=== PATIENT | male | born 1965 ===

== ENCOUNTER 2017-12-10 14:18 | Inpatient (IN) | payer OTHER ==
[~2017-12-10] VITALS: Ht 165.1 cm; Wt 96.6 kg
--- NOTE | 2017-12-10 16:45 | NUR ---
144/83, 78 PULSE, 22 RESPIRATIONS, 99% O2 SATURATION ON ROOM AIR, 98.8 TEMPERATURE ORAL, PATIENT ARRIVED TO UNIT VIA AMBULANCE SERVICE AND ROBER, COMPLAINTS OF PAIN , REPORT FROM [facility] STATES PATIENT RECEIVED PAIN MEDICATION ([id number] AT 1530), NO SIGNS OF DISTRESS NOTED, CALL LIGHT PLACED IN REACH, BED LOCKED AND IN LOWEST POSITION. MD LANDIS AND MD SANZ NOTIFIED OF PATIENTS ARRIVAL. INVENTORY OF PATIENT BELONGINGS COMPLETED AND PLACED IN CHART. KNEE IMMOBILIZER AT BEDSIDE
[2017-12-10] MEDS ORDERED: ASPI-612 PO (17:42)
[2017-12-10] MEDS ORDERED: PANT40TA4 PO (17:43)
[2017-12-10] MEDS ORDERED: MAGNESIUM HYDROXIDE 30 ML LIQUID UDC PO PRN (17:45)
[2017-12-10] MEDS ORDERED: Z GUARD REMEDY PASTE 57 GM TUBE TOP PRN (17:45)
[2017-12-10] MEDS ORDERED: ACETAMINOPHEN 325 MG TABLET PO PRN (17:45)
[2017-12-10] MEDS ORDERED: ZOLP5TAB8 PO (17:47)
[2017-12-10] MEDS ORDERED: SENN-18 PO (17:47)
[2017-12-10] MEDS ORDERED: NALO0.4A7 IV (18:04)
[2017-12-10] MEDS ORDERED: DIPH25CA6 PO (18:04)
[2017-12-10] MEDS ORDERED: CLON0.1T PO (18:04)
[2017-12-10] MEDS ORDERED: MENT3.2L MM (18:04)
[2017-12-10] MEDS ORDERED: MULTI (18:04)
[2017-12-10] MEDS ORDERED: HYDR-3980 PO (18:04)
[2017-12-10] MEDS ORDERED: ONDA4TAB10 PO (18:04)
[2017-12-10] MEDS ORDERED: MORP15TA IM (18:04)
[2017-12-10] MEDS ORDERED: BISA10SU61 RC (18:04)
[2017-12-10] MEDS ORDERED: MAG355OR18 PO (18:04)
[2017-12-10] MEDS ORDERED: OXYCODONE HCL 5 MG TABLET PO ONE (18:30)
[2017-12-10 20:46] VITALS: BP 138/72
[2017-12-10] MEDS: DOCUSATE SODIUM 100 MG CAPSULE PO SCH (21:11)
[2017-12-10] MEDS: OXYCODONE HCL 10 MG TAB.SR.12H PO SCH (21:13)
--- NOTE | 2017-12-10 21:50 | NUR ---
2200 Oxycontin 10 mg not given because patient received Oxy 15mg @ 1900.Pain level is 3/10 at this time. He says he is comfortable right now.
--- NOTE | 2017-12-11 01:33 | NUR ---
admittedwith left total knee replacement. left knee with gianna intact, dressing intact. no drainage noted. OOB to the BR with walker with supervision. Voiding well. BM noted this shift. On pain management. On oxycontin for pain. will monitor patient. No acute distress noted.
--- NOTE | 2017-12-11 05:43 | NUR ---
quiet night. slept well.ambulates with walker to the BR. voiding well. no distress noted. will monitor patient.pain meds given as scheduled.
[2017-12-11 05:59] VITALS: BP 132/68
[2017-12-11] MEDS: OXYCODONE HCL 10 MG TAB.SR.12H PO SCH ×3 (06:20→21:03)
[2017-12-11 08:00] VITALS: BP 128/73
--- NOTE | 2017-12-11 08:22 | NUR ---
Patient noted resting in bed, easily arouses, no facial cues of pain at this time, no signs of distress, call light in reach, bed locked and in lowest position
[2017-12-11] MEDS ORDERED: HYDROCODONE/APAP 10-325 MG TABLET PO PRN (09:45)
[2017-12-11] MEDS ORDERED: ONDANSETRON HCL 4 MG TABLET PO PRN (09:45)
[2017-12-11] MEDS ORDERED: CLONIDINE HCL 0.1 MG TABLET PO PRN (09:45)
[2017-12-11] MEDS: HYDROCODONE/APAP 10-325 MG TABLET PO PRN (11:07)
[2017-12-11] MEDS: ASPIRIN 325 MG TABLET PO SCH (17:16)
--- NOTE | 2017-12-11 20:04 | NUR ---
aaox4 oob to the BR with walker with supervision. no acute distress noted. will monitor patient. Left knee dressing clean dry and intact. needs attended. vital signs taken and recorded. voiding well. denies any pain at this time. kept comfortable.
[2017-12-11 20:27] VITALS: BP 132/82
[2017-12-11] MEDS: DOCUSATE SODIUM 100 MG CAPSULE PO SCH (20:58)
[2017-12-11] MEDS: PANTOPRAZOLE SODIUM 40 MG TABLET.DR PO SCH (20:59)
[2017-12-11] MEDS: SENNOSIDES 1 TABLET PO SCH (20:59)
[2017-12-11] MEDS ORDERED: ZOLPIDEM 5 MG TABLET PO PRN (21:00)
--- NOTE | 2017-12-12 05:05 | NUR ---
slept at long intervals. no acute distress noted. kept comfortable. will monitor patient. voiding well. OOB to the BR with walker with supervision. no distress noted. fall precautions maintained.call brown within reach. siderails up for safety.
[2017-12-12 05:09] VITALS: BP 124/86
[2017-12-12] MEDS: OXYCODONE HCL 10 MG TAB.SR.12H PO SCH ×3 (06:08→21:21)
[2017-12-12 06:38] LABS: CREATININE 0.7 mg/dL (0.6-1.3); POTASSIUM 3.8 mmol/L (3.5-5.1)
[2017-12-12 06:50] LABS: BASOPHILS % (AUTO) 0.2 % (0.0-2.0); EOSINOPHILS # (AUTO) 0.1 K/uL (0.0-0.7); EOSINOPHILS % (AUTO) 0.5 % (0.0-7.0); HEMATOCRIT 32.5 % (36.7-47.1); HEMOGLOBIN 11.3 g/dL (12.5-16.3); LYMPHOCYTES # (AUTO) 2.8 K/uL (20.0-40.0); LYMPHOCYTES % (AUTO) 23.6 % (20.5-51.5); MEAN CORPUSCULAR HEMOGLOBIN 31.7 uug (23.8-33.4); MEAN CORPUSCULAR HGB CONC 35 g/dL (32.5-36.3); MEAN CORPUSCULAR VOLUME 91.5 fL (73.0-96.2); MONOCYTES # (AUTO) 1.2 K/uL (2.0-10.0); MONOCYTES % (AUTO) 9.8 % (0.0-11.0); NEUTROPHILS # (AUTO) 7.9 K/uL (1.8-8.9); NEUTROPHILS % (AUTO) 65.9 % (38.5-71.5); PLATELET COUNT (AUTO) 269 K/uL (152-348); RED BLOOD CELL COUNT(AUTO) 3.56 MIL/uL (4.06-5.63)
--- NOTE | 2017-12-12 07:36 | NUR ---
Patient noted resting in bed with eyes closed, no facial cues of pain noted, no signs of distress, call light in reach, bed locked and in lowest position, x 2 bed rails, bed alarm in place
[2017-12-12 08:00] VITALS: BP 125/79
[2017-12-12] MEDS: ASPIRIN 325 MG TABLET PO SCH ×2 (08:14→17:53)
--- NOTE | 2017-12-12 13:54 | NUR ---
INTERDISCIPLINARY TEAM CONFERENCE
--- NOTE | 2017-12-12 15:18 | NUR ---
I agree Addendum: 12/12/17 at 1519 by ANNEMARIE CUTLER OT Amended: Links added.
--- NOTE | 2017-12-12 15:18 | NUR ---
I agree Addendum: 12/12/17 at 1518 by ANNEMARIE CUTLER OT Amended: Links added.
[2017-12-12 16:00] VITALS: BP 129/76
[2017-12-12] MEDS: HYDROCODONE/APAP 10-325 MG TABLET PO PRN (17:53)
[2017-12-12 19:30] VITALS: BP 117/78
--- NOTE | 2017-12-12 20:59 | NUR ---
received pt alert, awake and oriented x3. Able to make needs known. pleasant, calm and cooperative to care. No acute distress noted. No complaints of pain or discomfort at this time. Breathing even and unlabored with normal respirations. Assisted to the bathroom as needed. Encouraged to verbalize needs and concerns and to call for assistance if needed. Call light and personal belongings within reach. All needs attended.
[2017-12-12] MEDS: PANTOPRAZOLE SODIUM 40 MG TABLET.DR PO SCH (21:20)
[2017-12-12] MEDS: SENNOSIDES 1 TABLET PO SCH (21:20)
[2017-12-12] MEDS: DOCUSATE SODIUM 100 MG CAPSULE PO SCH (21:20)
[2017-12-13] MEDS: OXYCODONE HCL 10 MG TAB.SR.12H PO SCH ×3 (06:30→21:13)
--- NOTE | 2017-12-13 08:00 | NUR ---
Patient awake, verbally responsive, coherent, not in any form of acute distress. No complain of any pain or discomfort at this time. Call light placed within reach. Reminded to use call light for assistance with verbalized understanding. Assisted to his needs. Family at bedside.
[2017-12-13 08:11] VITALS: BP 135/78
[2017-12-13] MEDS: ASPIRIN 325 MG TABLET PO SCH ×2 (08:22→17:44)
[2017-12-13 16:26] VITALS: BP 127/82
[2017-12-13] MEDS: ASPIRIN/ACETAMINOPHEN/CAFFEINE TABLET PO PRN (16:52)
[2017-12-13 19:30] VITALS: BP 134/59
--- NOTE | 2017-12-13 20:30 | NUR ---
Received pt lying comfortably in bed alert, awake and oriented x3 with no signs/symptoms of distress noted. Denies pain at this time. no SOB noted. All due meds given as ordered and well tolerated. Assisted to the bathroom as needed, PM care provided. Vital signs WNL. Encouraged to verbalize needs and concerns and to call for assistance if needed. Call light within reach. All needs attended.
[2017-12-13 20:46] VITALS: BP 125/75
[2017-12-13] MEDS: DOCUSATE SODIUM 100 MG CAPSULE PO SCH (20:52)
[2017-12-13] MEDS: SENNOSIDES 1 TABLET PO SCH (20:52)
[2017-12-13] MEDS: PANTOPRAZOLE SODIUM 40 MG TABLET.DR PO SCH (20:52)
[2017-12-14] MEDS: OXYCODONE HCL 10 MG TAB.SR.12H PO SCH ×3 (06:28→21:28)
[2017-12-14 07:38] LABS: BASOPHILS % (AUTO) 0.5 % (0.0-2.0); EOSINOPHILS # (AUTO) 0.1 K/uL (0.0-0.7); EOSINOPHILS % (AUTO) 1.3 % (0.0-7.0); HEMATOCRIT 31.1 % (36.7-47.1); LYMPHOCYTES # (AUTO) 1.8 K/uL (20.0-40.0); LYMPHOCYTES % (AUTO) 18.9 % (20.5-51.5); MEAN CORPUSCULAR HEMOGLOBIN 32.6 uug (23.8-33.4); MEAN CORPUSCULAR HGB CONC 35 g/dL (32.5-36.3); MONOCYTES # (AUTO) 0.9 K/uL (2.0-10.0); MONOCYTES % (AUTO) 9.5 % (0.0-11.0); NEUTROPHILS # (AUTO) 6.5 K/uL (1.8-8.9); NEUTROPHILS % (AUTO) 69.8 % (38.5-71.5); PLATELET COUNT (AUTO) 286 K/uL (152-348); RED BLOOD CELL COUNT(AUTO) 3.38 MIL/uL (4.06-5.63); WHITE BLOOD COUNT (AUTO) 9.3 K/uL (3.6-10.2)
[2017-12-14 08:35] VITALS: BP 120/74
--- NOTE | 2017-12-14 08:48 | NUR ---
Received patient awake, alert x4. Resting in bed. With pain over left leg, routine pain medications given. Morning care done. Not in any form of distress.
[2017-12-14] MEDS: ASPIRIN 325 MG TABLET PO SCH ×2 (08:58→17:33)
--- NOTE | 2017-12-14 09:00 | NUR ---
Up with occupational therapy, tolerating well.
[2017-12-14 16:16] VITALS: BP 136/80
[2017-12-14 19:30] VITALS: BP 134/71
[2017-12-14] MEDS: DOCUSATE SODIUM 100 MG CAPSULE PO SCH (21:22)
[2017-12-14] MEDS: PANTOPRAZOLE SODIUM 40 MG TABLET.DR PO SCH (21:23)
[2017-12-14] MEDS: SENNOSIDES 1 TABLET PO SCH (21:23)
[2017-12-15] MEDS: ASPIRIN/ACETAMINOPHEN/CAFFEINE TABLET PO PRN (01:12)
--- NOTE | 2017-12-15 04:29 | NUR ---
AAOx4 OOB with walker to the BR. Voiding without difficulty. No acute distress noted. Kept comfortable. Needs attended. On pain management. Oxycontin 10mg given @ scheduled times. Tolerated po meds well. Will monitor patient.
[2017-12-15] MEDS: OXYCODONE HCL 10 MG TAB.SR.12H PO SCH ×3 (06:15→21:07)
[2017-12-15] MEDS: ASPIRIN 325 MG TABLET PO SCH ×2 (08:27→17:01)
[2017-12-15 08:29] VITALS: BP 133/79
--- NOTE | 2017-12-15 09:48 | NUR ---
Patient noted resting in bed, states pain is at acceptable level, no signs of distress noted, call light in reach, bed locked an d in lowest position, x 2 bed rails, all needs met at this time
[2017-12-15 20:10] VITALS: BP 134/85
[2017-12-15] MEDS: SENNOSIDES 1 TABLET PO SCH (21:06)
[2017-12-15] MEDS: PANTOPRAZOLE SODIUM 40 MG TABLET.DR PO SCH (21:07)
[2017-12-15] MEDS: DOCUSATE SODIUM 100 MG CAPSULE PO SCH (21:07)
--- NOTE | 2017-12-16 01:11 | NUR ---
In good spirits. Compliant with meds. Pain meds given at scheduled times. Needs attended. Siderails up for safety. No acute distress noted. Voiding in urinal. Fall precautions maintained. Will monitor patient.
[2017-12-16 05:00] VITALS: BP 123/71
[2017-12-16] MEDS: OXYCODONE HCL 10 MG TAB.SR.12H PO SCH ×3 (06:12→21:38)
--- NOTE | 2017-12-16 07:53 | NUR ---
Patient noted resting in bed watching tv, no complaints of pain at this time, no signs of distress noted, call light in reach, bed locked and in lowest position, all needs met at this time
[2017-12-16] MEDS: ASPIRIN 325 MG TABLET PO SCH ×2 (08:37→16:26)
[2017-12-16 09:59] VITALS: BP 123/55
[2017-12-16] MEDS: ASPIRIN/ACETAMINOPHEN/CAFFEINE TABLET PO PRN (16:26)
--- NOTE | 2017-12-16 20:00 | NUR ---
RECEIVED PATIENT AWAKE IN BED. PATIENT IS A/O X4. DENIES ANY PAIN OR DISCOMFORT. NO RESP. DISTRESS NOTED. DRESSING NOTED TO LEFT KNEE, C/D/I. VS WNL. CALL LIGHT IN REACH. ALL NEEDS ATTENDED. WILL CONTINUE TO MONITOR.
[2017-12-16 20:06] VITALS: BP 130/76
[2017-12-16] MEDS: PANTOPRAZOLE SODIUM 40 MG TABLET.DR PO SCH (21:37)
[2017-12-16] MEDS: DOCUSATE SODIUM 100 MG CAPSULE PO SCH (21:37)
[2017-12-16] MEDS: SENNOSIDES 1 TABLET PO SCH (21:38)
[2017-12-17] MEDS: OXYCODONE HCL 10 MG TAB.SR.12H PO SCH ×3 (06:02→22:09)
--- NOTE | 2017-12-17 06:47 | NUR ---
PATIENT AWAKE IN BED. SLEPT WELL. CALL LIGHT IN REACH. ALL NEEDS ATTENDED.
[2017-12-17 07:00] VITALS: BP 115/76
[2017-12-17] MEDS: ASPIRIN 325 MG TABLET PO SCH ×2 (08:34→18:06)
--- NOTE | 2017-12-17 14:19 | NUR ---
SBAR report received from building specialist, board updated. Pt assessed, denies discomfort except when exercising left knee, reporting pain 6-7/10 while using CPM. Pt describes pain resolving with pain medication as scheduled. Headache also reported to resolve with PRN medication. No acute distress noted. Pt able to make needs known. Bed in locked, lowest position with side rails up x2. All safety and comfort needs met at this time. Call light placed within reach, will continue to monitor.
[2017-12-17 15:00] VITALS: BP 126/72
[2017-12-17] MEDS: ASPIRIN/ACETAMINOPHEN/CAFFEINE TABLET PO PRN (20:03)
[2017-12-17 20:47] VITALS: BP 117/77
[2017-12-17] MEDS: DOCUSATE SODIUM 100 MG CAPSULE PO SCH (22:10)
[2017-12-17] MEDS: PANTOPRAZOLE SODIUM 40 MG TABLET.DR PO SCH (22:10)
[2017-12-17] MEDS: SENNOSIDES 1 TABLET PO SCH (22:10)
[2017-12-18 05:11] VITALS: BP 121/80
--- NOTE | 2017-12-18 06:02 | NUR ---
Patient slept comfortably throughout the night. No c/o pain and discomfort. No acute distress. No SOB. Kept clean and dry. All needs attended to promptly. Call light within reach. Will continue to monitor.
[2017-12-18] MEDS: OXYCODONE HCL 10 MG TAB.SR.12H PO SCH ×3 (06:27→21:04)
[2017-12-18 08:00] VITALS: BP 127/84
[2017-12-18] MEDS: ASPIRIN 325 MG TABLET PO SCH ×2 (08:11→17:26)
--- NOTE | 2017-12-18 13:22 | NUR ---
SBAR report received, board updated. Pt assessed, denies c/o pain or discomfort. Left knee incision dressing reinforced, no s/s of infection noted. Pt assisted to bathroom with walker and back to bed. Pt compliant with all routine morning medications. Pt able to make needs known and all needs attended to at this time. Pt assisted with placement and removal of CPM, no exceeding the 2hr duration limit. Pt teaching provided. Call light within reach, will continue to monitor.
[2017-12-18 15:38] VITALS: BP 133/74
[2017-12-18] MEDS: ASPIRIN/ACETAMINOPHEN/CAFFEINE TABLET PO PRN (17:26)
[2017-12-18 20:27] VITALS: BP 130/99
[2017-12-18] MEDS: PANTOPRAZOLE SODIUM 40 MG TABLET.DR PO SCH (21:01)
[2017-12-18] MEDS: SENNOSIDES 1 TABLET PO SCH (21:01)
[2017-12-18] MEDS: DOCUSATE SODIUM 100 MG CAPSULE PO SCH (21:01)
--- NOTE | 2017-12-19 04:29 | NUR ---
Condition unchanged. OOB to the BR with walker. Voiding well. Needs attended. BM noted this shift. In good spirits. Compliant with meds. No acute distress noted. left knee dressing clean dry and intact. Kept comfortable. Slept most of the shift.
[2017-12-19 06:16] VITALS: BP 121/79
[2017-12-19] MEDS: OXYCODONE HCL 10 MG TAB.SR.12H PO SCH ×3 (06:32→21:42)
[2017-12-19 07:34] LABS: EOSINOPHILS % (AUTO) 0.5 % (0.0-7.0); HEMATOCRIT 31.8 % (36.7-47.1); HEMOGLOBIN 11.2 g/dL (12.5-16.3); LYMPHOCYTES # (AUTO) 1.9 K/uL (20.0-40.0); LYMPHOCYTES % (AUTO) 21.2 % (20.5-51.5); MEAN CORPUSCULAR HGB CONC 35 g/dL (32.5-36.3); MEAN CORPUSCULAR VOLUME 91.1 fL (73.0-96.2); MONOCYTES # (AUTO) 0.9 K/uL (2.0-10.0); MONOCYTES % (AUTO) 9.9 % (0.0-11.0); NEUTROPHILS # (AUTO) 6.1 K/uL (1.8-8.9); NEUTROPHILS % (AUTO) 68.4 % (38.5-71.5); PLATELET COUNT (AUTO) 479 K/uL (152-348); RED BLOOD CELL COUNT(AUTO) 3.49 MIL/uL (4.06-5.63); WHITE BLOOD COUNT (AUTO) 8.9 K/uL (3.6-10.2)
--- NOTE | 2017-12-19 07:50 | NUR ---
SBAR report received, board updated. Pt assessed, no c/o pain or acute distress. Bed in locked and lowest position, with side rails up x2. Pt able to make needs known. All safety and comfort measures met. Call light within reach. Will continue to monitor.
[2017-12-19 08:01] LABS: BILIRUBIN,TOTAL 0.5 mg/dL (0.2-1.0); CREATININE 0.8 mg/dL (0.6-1.3); MAGNESIUM 2.1 mg/dL (1.8-2.4); PHOSPHOROUS 4.4 mg/dL (2.5-4.9); POTASSIUM 3.9 mmol/L (3.5-5.1); TOTAL PROTEIN, SERUM 7.4 g/dL (6.4-8.2)
[2017-12-19] MEDS: ASPIRIN 325 MG TABLET PO SCH ×2 (08:09→17:10)
--- NOTE | 2017-12-19 13:40 | NUR ---
INTERDISCIPLINARY TEAM CONFERENCE
--- NOTE | 2017-12-19 15:11 | NUR ---
I agree Addendum: 12/19/17 at 1511 by ANNMEARIE CUTLER OT Amended: Links added.
--- NOTE | 2017-12-19 15:11 | NUR ---
I agree Addendum: 12/19/17 at 1512 by ANNEMARIE CUTLER OT Amended: Links added.
[2017-12-19 16:10] VITALS: BP 117/84
[2017-12-19] MEDS: ASPIRIN/ACETAMINOPHEN/CAFFEINE TABLET PO PRN (17:10)
--- NOTE | 2017-12-19 19:20 | NUR ---
Received patient in bed. Alert and verbally responsive. Able to make needs known. Denies any pain and discomfort. No acute distress. No SOB. Left knee surgical site is clean and intact. All needs attended to promptly. Call light within reach. Will continue to monitor.
[2017-12-19 20:41] VITALS: BP 113/72
[2017-12-19] MEDS: PANTOPRAZOLE SODIUM 40 MG TABLET.DR PO SCH (21:41)
[2017-12-19] MEDS: ATORVASTATIN 10 MG TABLET PO SCH (21:41)
[2017-12-19] MEDS: DOCUSATE SODIUM 100 MG CAPSULE PO SCH (21:41)
[2017-12-19] MEDS: SENNOSIDES 1 TABLET PO SCH (21:41)
[2017-12-20] MEDS: OXYCODONE HCL 10 MG TAB.SR.12H PO SCH ×3 (06:20→21:08)
[2017-12-20] MEDS: ASPIRIN 325 MG TABLET PO SCH ×2 (07:52→17:23)
[2017-12-20] MEDS: ASPIRIN/ACETAMINOPHEN/CAFFEINE TABLET PO PRN (07:52)
[2017-12-20 08:26] VITALS: BP 126/86
--- NOTE | 2017-12-20 12:22 | NUR ---
Patient noted resting in bed watching tv, complains of pain 2/10 in left knee as well as a headache, no signs of distress, call light in reach, bed locked and in lowest position, x 2 bed rails, all AM medications taken without trouble, all needs met at this time
--- NOTE | 2017-12-20 19:30 | NUR ---
PT ALERT AND ORIENTED IN BED. NO DISTRESS NOTED. COMPLIANT WITH NURSING CARE. SAFETY MAINTAINED. CALL LIGHT WITHIN REACH. WILL CONTINUE TO MONITOR.
[2017-12-20 20:03] VITALS: BP 128/79
[2017-12-20] MEDS: SENNOSIDES 1 TABLET PO SCH (21:08)
[2017-12-20] MEDS: PANTOPRAZOLE SODIUM 40 MG TABLET.DR PO SCH (21:08)
[2017-12-20] MEDS: ATORVASTATIN 10 MG TABLET PO SCH (21:08)
[2017-12-20] MEDS: DOCUSATE SODIUM 100 MG CAPSULE PO SCH (21:09)
[2017-12-21] MEDS: OXYCODONE HCL 10 MG TAB.SR.12H PO SCH ×3 (06:07→21:05)
--- NOTE | 2017-12-21 06:42 | NUR ---
PT RESTING IN BED. NO DISTRESS NOTED. DRESSING CHANGED. CLEAN AND DRY. PAIN MEDICATION GIVEN ORDERED. SAFETY MAINTAINED. CALL LIGHT WITHIN REACH.
[2017-12-21 08:00] VITALS: BP 117/78
[2017-12-21] MEDS: ASPIRIN 325 MG TABLET PO SCH ×2 (08:21→17:51)
[2017-12-21] MEDS: HYDROCODONE/APAP 10-325 MG TABLET PO PRN (08:22)
[2017-12-21 15:55] VITALS: BP 124/79
[2017-12-21] MEDS: ASPIRIN/ACETAMINOPHEN/CAFFEINE TABLET PO PRN (17:51)
--- NOTE | 2017-12-21 18:13 | NUR ---
Dressing to left knee changed, clean/dry/intact
--- NOTE | 2017-12-21 19:40 | NUR ---
Received pt in bed, AAO x 3 watching television. No acute distress noted. Verbally responsive and able to make needs known. Denies pain or discomfort at this time. All safety measures and fall precautions maintained. Call light and all personal belongings within reach. Will continue to monitor.
[2017-12-21] MEDS: ATORVASTATIN 10 MG TABLET PO SCH (20:52)
[2017-12-21] MEDS: DOCUSATE SODIUM 100 MG CAPSULE PO SCH (20:52)
[2017-12-21] MEDS: SENNOSIDES 1 TABLET PO SCH (20:52)
[2017-12-21] MEDS: PANTOPRAZOLE SODIUM 40 MG TABLET.DR PO SCH (20:52)
[2017-12-21 22:04] VITALS: BP 131/88
[2017-12-22 05:04] VITALS: BP 116/76
[2017-12-22] MEDS: OXYCODONE HCL 10 MG TAB.SR.12H PO SCH ×3 (06:35→21:11)
--- NOTE | 2017-12-22 08:00 | NUR ---
Patient awake verbally responsive, coherent, not in any form of acute distress. He denies any pain or discomfort at this time. Call light placed within reach. Reminded to use call light for assistance with verbalized understanding.
[2017-12-22 08:27] VITALS: BP 122/74
[2017-12-22] MEDS: ASPIRIN 325 MG TABLET PO SCH ×2 (09:53→17:37)
--- NOTE | 2017-12-22 11:52 | NUR ---
Patient picked up by [facility] transportation via [facility] for appointment with Dr. Dai at 1PM. Patient has no complain of any pain or discomfort at this time. Addendum: 12/22/17 at 1749 by SKYLA CAMPOS RN Result of left knee x-ray in CD, H&P and medication list provided to the patient for the ortho appointment.
--- NOTE | 2017-12-22 14:00 | NUR ---
Patient came back from appointment with Dr. Dai (orthopedic surgeon). Noted with intact steri strips on the left knee, clean and dry.
[2017-12-22 19:57] VITALS: BP 121/76
--- NOTE | 2017-12-22 19:58 | NUR ---
Received pt in bed, AAO x 4 watching television. No acute distress noted. Denies pain or discomfort at this time. Verbally responsive and able to make needs known. All safety measures and fall precautions maintained. Call light and all personal belongings within reach. Will continue to monitor.
[2017-12-22] MEDS: ATORVASTATIN 10 MG TABLET PO SCH (21:11)
[2017-12-22] MEDS: SENNOSIDES 1 TABLET PO SCH (21:11)
[2017-12-22] MEDS: DOCUSATE SODIUM 100 MG CAPSULE PO SCH (21:11)
[2017-12-22] MEDS: PANTOPRAZOLE SODIUM 40 MG TABLET.DR PO SCH (21:11)
[2017-12-23] MEDS: ASPIRIN/ACETAMINOPHEN/CAFFEINE TABLET PO PRN (03:05)
[2017-12-23] MEDS: OXYCODONE HCL 10 MG TAB.SR.12H PO SCH ×2 (06:26→14:16)
--- NOTE | 2017-12-23 07:47 | NUR ---
Received patient awake, in bed, verbally responsive, able to make needs known. No complain of pain or any discomfort at this time. No dyspnea or SOB noted. Assisted to his needs. Call light placed within reach. reminded to use call light for assistance with verbalized understanding.
[2017-12-23] MEDS: ASPIRIN 325 MG TABLET PO SCH ×2 (08:36→17:27)
[2017-12-23 08:43] VITALS: BP 116/78
[2017-12-23 21:25] VITALS: BP 128/89
[2017-12-23] MEDS: SENNOSIDES 1 TABLET PO SCH (21:51)
[2017-12-23] MEDS: DOCUSATE SODIUM 100 MG CAPSULE PO SCH (21:51)
[2017-12-23] MEDS: ATORVASTATIN 10 MG TABLET PO SCH (21:52)
[2017-12-23] MEDS: PANTOPRAZOLE SODIUM 40 MG TABLET.DR PO SCH (21:52)
--- NOTE | 2017-12-24 08:00 | NUR ---
Received patient awake, alert resting in bed. Not in any form of distress. Call light within reach. For discharge today.
[2017-12-24] MEDS: ASPIRIN 325 MG TABLET PO SCH (08:41)
[2017-12-24 08:44] VITALS: BP 112/79
[2017-12-24] MEDS ORDERED: OXYCODONE HCL 10 MG TAB.SR.12H PO ONE (10:00)
--- NOTE | 2017-12-24 10:05 | NUR ---
Patient complained of pain over left knee rated as 9/10. Informed Dr. Esquivel ordered single dose of OxyContin. Surgical dressing changed surgical wound healing well, no discharges. Steri-strips applied. Dry and intact.
[2017-12-24] MEDS: ASPIRIN/ACETAMINOPHEN/CAFFEINE TABLET PO PRN (13:32)
--- NOTE | 2017-12-24 15:30 | NUR ---
DISCHARGE TO HOME, STABLE WITH TOLERABLE PAIN. ACCOMPANIED BY SON, AMBULATORY. ROUTINE DISCHARGE CARE DONE. DR. SANZ INFORMED AND GAVE ORDERS FOR DISCHARGE. INFORMED TO TAKE MEDICATIONS PRESCRIBED AND TO FOLLOW UP WITH DR. MURGUIA.
== END 2017-12-24 15:30 | disposition home health service (06) | DRG 560 ==
LOC: UNDOADMIN 14:18
PROVIDERS: ADMIT Physical Medicine & Rehabilitation Pain Medicine; ATTEND Physical Medicine & Rehabilitation Pain Medicine
DX: Z47.1 Aftercare following joint replacement surgery (principal); D68.59 Other primary thrombophilia; D64.9 Anemia, unspecified; Z96.652 Presence of left artificial knee joint; E66.9 Obesity, unspecified; E78.5 Hyperlipidemia, unspecified; Z68.35 Body mass index [BMI] 35.0-35.9, adult; Z79.899 Other long term (current) drug therapy; R51 Headache; R73.9 Hyperglycemia, unspecified
CPT/HCPCS: 36415; 83735; 84100; 85025; 92526; 92610; 97110; 97112; 97116; 97530; 97535; A9150